=== PATIENT | female | born 1980 | race African-American/Black ===

== ENCOUNTER 2018-11-08 22:26 | Emergency (ER) | payer BC ==
--- NOTE | 2018-11-08 23:17 | EDPHYS ---
Physician Documentation [facility] Name: Shweta London Age: 38 yrs Sex: Female : 1980 Arrival Date: 11/08/2018 Time: 22:30 Bed 18 Private MD: Nick Orr ED Physician Manav Markham HPI: 11/08 23:18 This 38 yrs old Black Female presents to ER via Ambulatory with complaints of Leg Pain. kb 23:18 The patient presents with pain, that is acute. The complaints affect the right mendez and kb dorsum of right foot. Context: resulted from an unknown cause, the patient can fully bear weight, the patient is able to ambulate. Onset: The symptoms/episode began/occurred 1 week(s) ago. Modifying factors: The symptoms are alleviated by nothing. the symptoms are aggravated by nothing. Associated signs and symptoms: Pertinent positives: tingling, Pertinent negatives calf tenderness, fever, nausea, numbness, rash, swelling, vomiting, warmth, weakness. Treatment prior to arrival includes: steroids, muscle relaxers. Severity of symptoms: At their worst the symptoms were moderate, in the emergency department the symptoms are unchanged. The patient has not experienced similar symptoms in the past. The patient has been recently seen by a physician:. Pt reports she started having right low back pain a week ago. Went to chiropractor a few times and it started going down right leg. Went to [place] and diagnosed with sciatic, given steroids and muscle relaxers. States pain is now mid mendez to foot and intermittent. States it feels like it is falling asleep at times, pins and needles. Feels like nerves per patient. . 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 - Social history:: Smoking status: Patient/guardian denies using tobacco, Patient uses alcohol, occasionally. - Ebola Screening: : Patient negative for fever greater than or equal to 101.5 degrees Fahrenheit, and additional compatible Ebola Virus Disease symptoms Patient denies exposure to infectious person Patient denies travel to an Ebola-affected area in the 21 days before illness onset. ROS: 23:17 Constitutional: Negative for fever, chills, and weight loss, Neck: Negative for injury, kb pain, and swelling, Cardiovascular: Negative for chest pain, palpitations, and edema, Respiratory: Negative for shortness of breath, cough, wheezing, and pleuritic chest pain, Abdomen/GI: Negative for abdominal pain, nausea, vomiting, diarrhea, and constipation, Skin: Negative for injury, rash, and discoloration, Neuro: Negative for headache, weakness, numbness, tingling, and seizure. 23:17 MS/extremity: Positive for pain, of the right mendez and dorsum of right foot. Exam: 23:17 Constitutional: This is a well developed, well nourished patient who is awake, alert, kb and in no acute distress. Head/Face: Normocephalic, atraumatic. Chest/axilla: Normal chest wall appearance and motion. Nontender with no deformity. No lesions are appreciated. Cardiovascular: Regular rate and rhythm with a normal S1 and S2. No gallops, murmurs, or rubs. Normal PMI, no JVD. No pulse deficits. Respiratory: Lungs have equal breath sounds bilaterally, clear to auscultation and percussion. No rales, rhonchi or wheezes noted. No increased work of breathing, no retractions or nasal flaring. Abdomen/GI: Soft, non-tender, with normal bowel sounds. No distension or tympany. No guarding or rebound. No evidence of tenderness throughout. Skin: Warm, dry with normal turgor. Normal color with no rashes, no lesions, and no evidence of cellulitis. MS/ Extremity: Pulses equal, no cyanosis. Neurovascular intact. Full, normal range of motion. Neuro: Awake and alert, GCS 15, oriented to person, place, time, and situation. Cranial nerves II-XII grossly intact. Motor strength 5/5 in all extremities. Sensory grossly intact. Cerebellar exam normal. Normal gait. Vital Signs: 22:40 BP 138 / 90; Pulse 100; Resp 18; Temp 98.1(O); Pulse Ox 99% on R/A; Weight 72.57 kg fc (R); Height 5 ft. 9 in. (175.26 cm) (R); Pain 5/10; 23:26 BP 135 / 86; Pulse 79; Resp 19; Temp 97.2(TE); Pulse Ox 100% on R/A; Pain 5/10; ed1 22:40 Body Mass Index 23.63 (72.57 kg, 175.26 cm) MDM: 22:46 Patient medically screened. kb 23:17 Data reviewed: vital signs, nurses notes. Data interpreted: Pulse oximetry: on room air kb is 99 %. Interpretation: normal. Counseling: I had a detailed discussion with the patient and/or guardian regarding: the historical points, exam findings, and any diagnostic results supporting the discharge/admit diagnosis, the need for outpatient follow up, a family practitioner, to return to the emergency department if symptoms worsen or persist or if there are any questions or concerns that arise at home. Administered Medications: No medications were administered Disposition: 11/09 02:07 Co-signature as Attending Physician, Manav Markham MD I agree with the assessment and tw4 plan of care. Disposition: 11/08/18 23:16 Discharged to Home. Impression: neuropathy. - Condition is Stable. - Discharge Instructions: Neuropathic Pain. - Prescriptions for Neurontin 300 mg Oral Capsule - take 1 capsule by ORAL route At bedtime; 20 capsule. - Medication Reconciliation Form, Thank You Letter, Antibiotic Education, Prescription Opioid Use form. - Follow up: Emergency Department; When: As needed; Reason: Worsening of condition. Follow up: Nick Orr MD; When: 2 - 3 days; Reason: Recheck today's complaints, Continuance of care, Re-evaluation by your physician. Signatures: Chely Layton FNP-C FNP-Ckb Chretien, Felicia RN RN Lona Tirado RN RN ed1 Manav Markham MD MD tw4 Corrections: (The following items were deleted from the chart) 11/08 23:27 23:16 11/08/2018 23:16 Discharged to Home. Impression: neuropathy. Condition is Stable. ed1 Forms are Medication Reconciliation Form, Thank You Letter, Antibiotic Education, Prescription Opioid Use. Follow up: Emergency Department; When: As needed; Reason: Worsening of condition. Follow up: Nick Orr; When: 2 - 3 days; Reason: Recheck today's complaints, Continuance of care, Re-evaluation by your physician. kb
--- NOTE | 2018-11-08 23:17 | ER ---
Nurse's Notes [facility] Name: Shweta London Age: 38 yrs Sex: Female : 1980 Arrival Date: 11/08/2018 Time: 22:30 Bed 18 Private MD: Nick Orr Diagnosis: neuropathy Presentation: 11/08 22:40 Presenting complaint: Patient states: that last 9 days ago she started to have back fc pain after she bent over to pick something up. So on and Tue she was seen by Chiropractor who adjusted her back. Then the pain started to go down her right leg. Was seen at [place] last (4 days ago) and was given xrays, pain meds, steroids, muscle relaxors and 2 shots. Not any better and is having pain from knee down now. Feels as if she is getting no blood flow to lower leg and that she may be diabetic. Transition of care: patient was not received from another setting of care. Onset of symptoms was October 30, 2018. Risk Assessment: Do you want to hurt yourself or someone else? Patient reports no desire to harm self or others. Initial Sepsis Screen: Does the patient meet any 2 criteria? No. Patient's initial sepsis screen is negative. Does the patient have a suspected source of infection? No. Patient's initial sepsis screen is negative. Care prior to arrival: Medication(s) given: Ibuprofen, Tylenol #3, Prednisone, and Flexeril. 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 - Social history:: Smoking status: Patient/guardian denies using tobacco, Patient uses alcohol, occasionally. - Ebola Screening: : Patient negative for fever greater than or equal to 101.5 degrees Fahrenheit, and additional compatible Ebola Virus Disease symptoms Patient denies exposure to infectious person Patient denies travel to an Ebola-affected area in the 21 days before illness onset. Screenin:56 Abuse screen: Denies threats or abuse. Nutritional screening: No deficits noted. fc Tuberculosis screening: No symptoms or risk factors identified. Fall Risk None identified. Assessment: 23:00 General: Appears uncomfortable, Behavior is calm, cooperative. Pain: Complains of pain ed1 in right leg Pain currently is 5 out of 10 on a pain scale. Neuro: Level of Consciousness is awake, alert, obeys commands, Oriented to person, place, time, situation. Cardiovascular: Denies chest pain, Heart tones S1 S2 present. Respiratory: Airway is patent Respiratory effort is even, unlabored, Respiratory pattern is regular, symmetrical, Breath sounds are clear bilaterally. GI: No signs and/or symptoms were reported involving the gastrointestinal system. : No signs and/or symptoms were reported regarding the genitourinary system. EENT: No signs and/or symptoms were reported regarding the EENT system. Derm: Skin is pink, warm \T\ dry. Musculoskeletal: Circulation, motion, and sensation intact. Range of motion: intact in all extremities, Swelling absent Reports numbness in right leg pain in right leg. 23:26 Reassessment: Patient appears in no apparent distress at this time. No changes from ed1 previously documented assessment. Patient and/or family updated on plan of care and expected duration. Pain level reassessed. Patient is alert, oriented x 3, equal unlabored respirations, skin warm/dry/pink. Patient states symptoms have not improved. Vital Signs: 22:40 BP 138 / 90; Pulse 100; Resp 18; Temp 98.1(O); Pulse Ox 99% on R/A; Weight 72.57 kg fc (R); Height 5 ft. 9 in. (175.26 cm) (R); Pain 5/10; 23:26 BP 135 / 86; Pulse 79; Resp 19; Temp 97.2(TE); Pulse Ox 100% on R/A; Pain 5/10; ed1 22:40 Body Mass Index 23.63 (72.57 kg, 175.26 cm) ED Course: 22:30 Patient arrived in ED. mr 22:30 Nick Orr MD is Private Physician. mr 22:40 Arm band placed on Patient placed in an exam room, on a stretcher. fc 22:46 Chely Layton FNP-C is [facility]. kb 22:46 Manav Markham MD is Attending Physician. kb 22:55 Triage completed. fc 22:56 Patient has correct armband on for positive identification. Bed in low position. Call fc light in reach. 22:56 No provider procedures requiring assistance completed. fc 22:57 Lona Tirado, RN is Primary Nurse. ed1 23:15 Nick Orr MD is Referral Physician. kb 23:26 Patient did not have IV access during this emergency room visit. ed1 Administered Medications: No medications were administered Outcome: 23:16 Discharge ordered by MD. kb 23:26 Discharged to home ambulatory. ed1 23:26 Condition: good 23:26 Discharge instructions given to patient, Instructed on discharge instructions, follow up and referral plans. medication usage, Demonstrated understanding of instructions, follow-up care, medications, Prescriptions given X 1. 23:27 Patient left the ED. ed1 Signatures: Chely Layton FNP-C FNP-[place] Marian HernandezChing, RN RN Lona Tirado, ADAMARIS RN ed1 Corrections: (The following items were deleted from the chart) 22:58 22:40 Presenting complaint: Patient states: that last 9 days ago she started to have fc back pain after she bent over to pick something up. So on and Tue she was seen by Chiropractor who adjusted her back. Then the pain started to go down her right leg. Was seen at [place] last (4 days ago) and was given xrays, pain meds, steroids, muscle relaxors and 2 shots. Not any better and is having pain from knee down now. fc
== END 2018-11-08 23:27 | disposition home or self-care (01) ==
LOC: ER 22:26
DX: G62.9 Polyneuropathy, unspecified (principal)
CPT/HCPCS: 99282